=== PATIENT | male | born 1965 | race Caucasian/White ===

== ENCOUNTER → 2016-06-09 | Outpatient (CLI) | payer OTHER | LOC: RAD 19:52 | PROVIDERS: ATTEND Physician Assistant | DX: R05 Cough (principal) | CPT/HCPCS: 71020 ==

== ENCOUNTER 2018-09-26 19:14 | Observation (INO) | payer OTHER ==
[2018-09-26] MEDS ORDERED: ONDANSETRON 4 MG TAB.RAPDIS PO ONE (19:56)
[2018-09-26] MEDS ORDERED: OXYCODONE-ACETAMINOPHEN 5-325 MG TABLET PO ONE (19:56)
--- NOTE | 2018-09-26 19:59 | ER Document Report ---
ED Medical Screen (RME) - General Chief Complaint: Abdominal Pain Stated Complaint: ABDOMINAL PAIN Time Seen by Provider: 09/26/18 19:46 Primary Care Provider: ROSEY KAPOOR PA-C [Primary Care Provider] - Follow up as needed Notes: Patient is a 53-year-old male with a history of of acid reflux, colon cancer and chronic low back pain who presents the emergency department with a chief complaint of right upper quadrant pain. Patient states after eating his lunch which consisted of a ham and cheese sandwich and a peanut butter and jelly sandwich he developed a right upper quadrant constant pressure. Patient states he has no nausea without vomiting. Patient reports 3 episodes of diarrhea. Patient denies urinary symptoms. Patient reports a history of gallstones. Patient reports a history of acid reflux in which he does take omeprazole for and denies any recent belching or uncontrolled acid reflux. TRAVEL OUTSIDE OF THE [place] IN LAST 30 DAYS: No - Related Data Allergies/Adverse Reactions: morphine Allergy (Verified 09/26/18 19:23) tetracycline Adverse Reaction (Verified 09/26/18 19:23) Physical Exam - Vital signs Vitals: Temp Pulse Resp BP Pulse Ox 97.9 F 57 L 18 137/78 H 100 09/26/18 19:19 09/26/18 19:19 09/26/18 19:19 09/26/18 19:19 09/26/18 19:19 - Abdominal Inspection: Obese Distension: No distension Bowel sounds: Normal Tenderness: Tender - ruq tenderness Organomegaly: No organomegaly Course - Re-evaluation Re-evalutation: 09/26/18 19:59 I have greeted and performed a rapid initial assessment of this patient. A comprehensive ED assessment and evaluation of the patient, analysis of test results and completion of the medical decision making process will be conducted by additional ED providers. - Vital Signs Vital signs: Temp Pulse Resp BP Pulse Ox 97.9 F 57 L 18 137/78 H 100 09/26/18 19:19 09/26/18 19:19 09/26/18 19:19 09/26/18 19:19 09/26/18 19:19 Doctor's Discharge - Discharge Referrals: ROSEY KAPOOR PA-C [Primary Care Provider] - Follow up as needed
[2018-09-26 20:33] LABS: ABSOLUTE BASOPHILS # (AUTO) 0.1 10^3/uL (0.0-0.2); ABSOLUTE EOSINOPHILS # (AUTO) 0.8 10^3/uL (0.0-0.6); ABSOLUTE LYMPHOCYTES (AUTO) 4.4 10^3/uL (0.5-4.7); ABSOLUTE MONOCYTES (AUTO) 0.9 10^3/uL (0.1-1.4); ABSOLUTE NEUT (AUTO) 5.2 10^3/uL (1.7-8.2); EOSINOPHILS % (AUTO) 7.3 % (0-6); HEMATOCRIT 42.6 % (37.9-51.0); HEMOGLOBIN 14.4 g/dL (13.5-17.0); LYMPHOCYTES % (AUTO) 38.6 % (13-45); MEAN CORPUSCULAR HEMOGLOBIN 29.9 pg (27.0-33.4); MEAN CORPUSCULAR HGB CONC 33.7 g/dL (32.0-36.0); MEAN CORPUSCULAR VOLUME 89 fl (80-97); MONOCYTES % (AUTO) 7.6 % (3-13); PLATELET COUNT 257 10^3/uL (150-450); RED CELL DISTRIBUTION WIDTH 14.5 % (11.5-14.0); SEGMENTED NEUTROPHILS % (AUTO) 45.5 % (42-78); TOTAL CELLS COUNTED % (AUTO) 100 %; WHITE BLOOD COUNT 11.4 10^3/uL (4.0-10.5)
[2018-09-26 20:34] LABS: APPEARANCE,URINE CLEAR; BILIRUBIN,URINE NEGATIVE (NEGATIVE); COLOR,URINE YELLOW; GLUCOSE, URINE NEGATIVE (NEGATIVE); KETONES,URINE NEGATIVE (NEGATIVE); LEUKOCYTE ESTERASE,URINE NEGATIVE (NEGATIVE); NITRITE,URINE NEGATIVE (NEGATIVE); PROTEIN,URINE NEGATIVE (NEGATIVE); URINE SPECIFIC GRAVITY 1.029
[2018-09-26 20:49] LABS: ALBUMIN 4.5 g/dL (3.5-5.0); ALKALINE PHOSPHATASE 84 U/L (38-126); ANION GAP 9 (5-19); ASPARTATE AMINO TRANSFERASE 24 U/L (17-59); BILIRUBIN,DIRECT 0.3 mg/dL (0.0-0.4); BILIRUBIN,TOTAL 0.5 mg/dL (0.2-1.3); BLOOD UREA NITROGEN 14 mg/dL (7-20); CALCIUM 9.6 mg/dL (8.4-10.2); CARBON DIOXIDE 28 mmol/L (22-30); CHLORIDE 101 mmol/L (98-107); GLUCOSE 100 mg/dL (75-110); POTASSIUM 3.8 mmol/L (3.6-5.0); TOTAL PROTEIN 7.5 g/dL (6.3-8.2)
--- NOTE | 2018-09-26 21:26 | RADIOLOGY REPORT (SQ) ---
US ABDOMEN LIMITED EXAM DATE: 09/26/2018 7:56 PM CDT HISTORY: Right upper quadrant pain. COMPARISON: None. TECHNIQUE: Grayscale and color Doppler imaging of the right upper quadrant was performed. FINDINGS: The liver has normal echotexture without focal lesion identified. The main portal vein has normal hepatopetal flow. Multiple shadowing gallstones are seen. No pericholecystic fluid or gallbladder wall thickening. The common bile duct is normal caliber. The visualized portions of the pancreas are unremarkable. No hydronephrosis or shadowing renal stones are identified. The right kidney is normal in size. The visualized portions of the IVC and aorta are patent. IMPRESSION: Cholelithiasis without evidence of acute cholecystitis.
[2018-09-26] MEDS ORDERED: NORMAL SALINE 1000 ML 1,000 ML IV ONE (21:47)
[2018-09-26] MEDS ORDERED: HYDROMORPHONE HCL INJ/PF 2 MG/ML AMPULE IV ONE (21:47)
--- NOTE | 2018-09-26 22:01 | ER Document Report ---
ED GI/ - General Chief Complaint: Abdominal Pain Stated Complaint: ABDOMINAL PAIN Time Seen by Provider: 09/26/18 19:46 Notes: Patient is a 53-year-old male that comes emergency department for chief complaint of abdominal pain. Symptoms started after lunch shortly after he had eaten a ham and cheese sandwich along with a peanut butter and jelly sandwich. He states he had sharp pain and had nausea but denies vomiting. He has had intermittent pain since that time occasionally very sharp. He has had 3 somewhat loose stools today. He denies fever/chills. He does report a known history of gallstones. He has never had symptoms this bad in the right upper quadrant reportedly. Remaining medical history includes partial bowel resection for colon cancer, previous colostomy bag, appendectomy, GERD, "glucose intolerance" on metformin, hypothyroidism. TRAVEL OUTSIDE OF THE [place] IN LAST 30 DAYS: No - Related Data Allergies/Adverse Reactions: morphine Allergy (Verified 09/26/18 19:23) tetracycline Adverse Reaction (Verified 09/26/18 19:23) Past Medical History - General Information source: Patient - Social History Smoking Status: Never Smoker Frequency of alcohol use: None Drug Abuse: None Lives with: Family Family History: Reviewed & Not Pertinent Patient has suicidal ideation: No Patient has homicidal ideation: No Endocrine Medical History: Comment Only: Hx Diabetes Mellitus Type 2 - Pre- Diabetic Renal/ Medical History: Denies: Hx Peritoneal Dialysis Malignancy Medical History: Reports Hx Colorectal Cancer - Colon cancer status post partial bowel resection and colostomy bag GI Medical History: Reports: Hx Gastroesophageal Reflux Disease Past Surgical History: Reports: Hx Appendectomy, Hx Bowel Surgery, Hx Colostomy - Immunizations Hx Diphtheria, Pertussis, Tetanus Vaccination: Yes Review of Systems - Review of Systems Constitutional: No symptoms reported EENT: No symptoms reported Cardiovascular: No symptoms reported Respiratory: No symptoms reported Gastrointestinal: See HPI Genitourinary: No symptoms reported Male Genitourinary: No symptoms reported Musculoskeletal: No symptoms reported Skin: No symptoms reported Hematologic/Lymphatic: No symptoms reported Neurological/Psychological: No symptoms reported Physical Exam - Vital signs Vitals: Temp Pulse Resp BP Pulse Ox 97.9 F 57 L 18 137/78 H 100 09/26/18 19:19 09/26/18 19:19 09/26/18 19:19 09/26/18 19:19 09/26/18 19:19 - Notes Notes: GENERAL: Alert, interacts well. HEAD: Normocephalic, atraumatic. EYES: Pupils equal, round, and reactive to light. Extraocular movements intact. ENT: Oral mucosa moist, tongue midline. Oropharynx unremarkable. Airway patent. LUNGS: Clear to auscultation bilaterally, no wheezes, rales, or rhonchi. No respiratory distress. HEART: Regular rate and rhythm. No murmur ABDOMEN: Patient is very tender in the right upper quadrant and epigastric areas with a lot of wincing. No rigidity. Remaining abdominal exam is unremarkable. There is a lower abdominal scar in the right lower abdomen, abdomen otherwise unremarkable. GENITOURINARY: Deferred EXTREMITIES: Moves all 4 extremities spontaneously. No edema, normal radial and dorsalis pedis pulses bilaterally. No cyanosis. BACK: no cervical, thoracic, lumbar midline tenderness. No saddle anesthesia, normal distal neurovascular exam. NEUROLOGICAL: Alert and oriented x3. Normal speech. Cranial nerves II through XII grossly intact. PSYCH: Normal affect, normal mood. SKIN: Warm, dry, normal turgor. No rashes or lesions noted. Course - Re-evaluation Re-evalutation: CBC shows mild looks cytosis without concerning shift, no bandemia. Chemistry unremarkable, lipase unremarkable. Urinalysis unremarkable. Ultrasound showing cholelithiasis without cholecystitis. On my initial evaluation patient is complaining of significant amount of pain in the right upper quadrant. He does have pain on palpation of the area. Remaining abdomen is benign. He does not appear toxic. Vital signs unremarkable with no fever. On reevaluation patient states he is still having intermittent sharp pain and he does not feel he can go home, eat anything, or do well at home. States he would like to consider surgery. 09/26/18 23:00 I spoke with general surgeon on-call, Dr. Dumont, patient will be admitted to his service, patient was advised that there is a chance that he has a wait for the surgery but he will be attempted to be added to the list for the operating room. Patient states gratefulness and agreement. - Vital Signs Vital signs: Temp Pulse Resp BP Pulse Ox 97.9 F 57 L 18 137/78 H 100 09/26/18 19:19 09/26/18 19:19 09/26/18 19:19 09/26/18 19:09/26/18 19:19 - Laboratory Result Diagrams: 09/26/18 20:09 09/26/18 20:09 Laboratory results interpreted by me: 09/26/18 09/26/18 20:09 20:09 WBC 11.4 H RDW 14.5 H Eosinophils % 7.3 H Absolute Eosinophils 0.8 H Urine Urobilinogen 2.0 H Discharge - Discharge Clinical Impression: RUQ pain Cholelithiasis Qualifiers: Cholelithiasis location: gallbladder Cholecystitis presence: without cholecyst itis Biliary obstruction: without biliary obstruction Qualified Code(s): K80.20 - Calculus of gallbladder without cholecystitis without obstruction Condition: Stable Disposition: ADMITTED OBSERVATION Admitting Provider: Surgicalist Unit Admitted: Surgical Floor
[2018-09-26] MEDS ORDERED: ONDANSETRON HCL INJ/PF 4 MG/2 ML SDV IV PRN (22:57)
[2018-09-26] MEDS: KETOROLAC TROMETHAMINE INJ/PF 30 MG/1 ML SDV IV PRN (23:41)
[2018-09-27] MEDS ORDERED: PIPERACILLIN/TAZOBACTAM 3.375 GM VIAL IV ONE (00:20)
[2018-09-27] MEDS: PIPERACILLIN SODIUM/TAZOBACTAM 3.375 GM in NORMAL SALINE 100 ML IV SCH ×5 (00:41→21:25)
[2018-09-27] MEDS: NORMAL SALINE 1000 ML 1,000 ML IV PRN ×2 (00:41→18:19)
--- NOTE | 2018-09-27 07:22 | PDOC H&P ---
History of Present Illness Admission Date/PCP: 09/26/18 23:05 AMILCAR VERA Patient complains of: Right upper quadrant pain, unrelenting History of Present Illness: SEAN YOUSIF is a 53 year old male with a history of "gallbladder problems". He has a history of diabetes and hypertension. His previous episodes have been self-limited and mild to moderate. The patient reports that yesterday he ate a ham, cheese, and [place] sandwich. Approximately 30 minutes later he began having sharp, stabbing right upper quadrant pain that would not relent. The patient presented to the emergency department for evaluation. Patient had an ultrasound showing gallstones, without ancillary findings of cholecystitis. The patient received multiple doses of narcotic medication without significant relief. The patient reports nausea, without vomiting. He also reports frequent headaches. Denies chest pain, shortness of breath, dizziness, orthostasis, malaise, fatigu e, blurry vision. Past Medical History Endocrine Medical History: Comment Only: Diabetes Mellitus Type 2 - Pre-Diabetic Malignancy Medical History: Reports: Colorectal Cancer - Colon cancer status post partial bowel resection and colostomy bag GI Medical History: Reports: Gastroesophageal Reflux Disease Psychiatric Medical History: Denies: Depression Past Surgical History Past Surgical History: Reports: Appendectomy, Colostomy Social History Lives with: Family Smoking Status: Never Smoker Frequency of Alcohol Use: None Hx Recreational Drug Use: No Drugs: None Hx Prescription Drug Abuse: No - Advance Directive Resuscitation Status: Full Code Family History Family History: Reviewed & Not Pertinent Parental Family History Reviewed: Yes Children Family History Reviewed: Yes Sibling(s) Family History Reviewed.: Yes Medication/Allergy Allergies/Adverse Reactions: morphine Allergy (Verified 09/26/18 19:23) tetracycline Adverse Reaction (Verified 09/26/18 19:23) Review of Systems Constitutional: ABSENT: anorexia, chills, fatigue Eyes: ABSENT: visual disturbances Ears: ABSENT: hearing changes Nose, Mouth, and Throat: ABSENT: sore throat Cardiovascular: ABSENT: chest pain Respiratory: ABSENT: cough, dyspnea Gastrointestinal: PRESENT: abdominal pain, nausea. ABSENT: hematemesis, hematochezia, melena Genitourinary: ABSENT: dysuria Integumentary: ABSENT: diaphoresis, rash Neurological: ABSENT: confusion, convulsions, dizziness Psychiatric: ABSENT: anxiety, depression Endocrine: ABSENT: cold intolerance, heat intolerance Hematologic/Lymphatic: ABSENT: easy bleeding, easy bruising Physical Exam Vital Signs: Temp Pulse Resp BP Pulse Ox 97.4 F 46 L 16 108/63 97 09/27/18 04:39 09/27/18 04:39 09/27/18 04:39 09/27/18 04:39 09/27/18 04:39 Intake & Output 09/26/18 09/27/18 09/28/18 06:59 06:59 06:59 Intake Total 1100 Balance 1100 Weight 107.2 kg General appearance: PRESENT: no acute distress, cooperative Head exam: PRESENT: atraumatic, normocephalic Eye exam: PRESENT: EOMI, PERRLA. ABSENT: scleral icterus Mouth exam: PRESENT: moist, neck supple Neck exam: ABSENT: meningismus, tenderness, thyromegaly, tracheal deviation Respiratory exam: PRESENT: chest wall tenderness, unlabored. ABSENT: clear to auscultation karen, wheezes Cardiovascular exam: PRESENT: RRR Pulses: PRESENT: normal radial pulses - Patient be discharged home GI/Abdominal exam: PRESENT: guarding - Right upper quadrant, Nguyen's sign, soft, tenderness - Right upper quadrant. ABSENT: distended Rectal exam: PRESENT: deferred Extremities exam: ABSENT: clubbing Musculoskeletal exam: ABSENT: deformity Neurological exam: PRESENT: alert, awake, oriented to person, oriented to place, oriented to time, oriented to situation, CN II-XII grossly intact Psychiatric exam: ABSENT: agitated, anxious, depressed Focused psych exam: ABSENT: delusional Skin exam: ABSENT: cyanosis, erythema, jaundice Results Laboratory Results: 09/26/18 20:09 09/26/18 20:09 09/26/18 09/26/18 09/26/18 20:09 20:09 20:09 WBC 11.4 H RBC 4.80 Hgb 14.4 Hct 42.6 MCV 89 MCH 29.9 MCHC 33.7 RDW 14.5 H Plt Count 257 Seg Neutrophils % 45.5 Lymphocytes % 38.6 Monocytes % 7.6 Eosinophils % 7.3 H Basophils % 1.0 Absolute Neutrophils 5.2 Absolute Lymphocytes 4.4 Absolute Monocytes 0.9 Absolute Eosinophils 0.8 H Absolute Basophils 0.1 Sodium 137.8 Potassium 3.8 Chloride 101 Carbon Dioxide 28 Anion Gap 9 BUN 14 Creatinine 0.90 Est GFR ( Amer) > 60 Est GFR (Non-Af Amer) > 60 Glucose 100 Calcium 9.6 Total Bilirubin 0.5 AST 24 Alkaline Phosphatase 84 Total Protein 7.5 Albumin 4.5 Lipase 72.5 Urine Color YELLOW Urine Appearance CLEAR Urine pH 6.0 Ur Specific [place] 1.029 Urine Protein NEGATIVE Urine Glucose (UA) NEGATIVE Urine Ketones NEGATIVE Urine Blood NEGATIVE Urine Nitrite NEGATIVE Ur Leukocyte Esterase NEGATIVE Urine WBC (Auto) 0 Urine RBC (Auto) 1 Impressions: Abdomen Ultrasound 09/26/18 19:56 IMPRESSION: Cholelithiasis without evidence of acute cholecystitis. Assessment & Plan - Diagnosis (1) Cholecystitis Is this a current diagnosis for this admission?: Yes - Plan Summary Plan Summary: This is a 53-year-old male with unrelenting right upper quadrant pain, nausea, and gallstones. The patient has an ultrasound showing gallstones, without gallbladder wall thickening. Despite gallbladder wall thickening, I believe the patient is experiencing early acute cholecystitis. I will admit the patient to the hospital, start intravenous antibiotics, and plan for laparoscopic c holecystectomy today. Risks/benefits discussed, informed consent obtained, and all questions answered.
[2018-09-27] MEDS: KETOROLAC TROMETHAMINE INJ/PF 30 MG/1 ML SDV IV PRN ×2 (07:51→18:17)
--- NOTE | 2018-09-27 11:12 | PDOC PROGRESS REPORT ---
Subjective Progress Note for:: 09/27/18 Subjective:: minimal RUQ abdominal pain Reason For Visit: CHOLECYSTITIS Physical Exam Vital Signs: Temp Pulse Resp BP Pulse Ox 97.4 F 46 L 16 108/63 97 09/27/18 04:39 09/27/18 04:39 09/27/18 04:39 09/27/18 04:39 09/27/18 04:39 Intake & Output 09/26/18 09/27/18 09/28/18 06:59 06:59 06:59 Intake Total 1100 Balance 1100 Weight 107.2 kg General appearance: PRESENT: no acute distress Neck exam: PRESENT: full ROM Respiratory exam: PRESENT: clear to auscultation karen Cardiovascular exam: PRESENT: RRR GI/Abdominal exam: PRESENT: Nguyen's sign - minimal, soft Results Laboratory Results: 09/26/18 20:09 09/26/18 20:09 09/26/18 09/26/18 09/26/18 20:09 20:09 20:09 WBC 11.4 H RBC 4.80 Hgb 14.4 Hct 42.6 MCV 89 MCH 29.9 MCHC 33.7 RDW 14.5 H Plt Count 257 Seg Neutrophils % 45.5 Lymphocytes % 38.6 Monocytes % 7.6 Eosinophils % 7.3 H Basophils % 1.0 Absolute Neutrophils 5.2 Absolute Lymphocytes 4.4 Absolute Monocytes 0.9 Absolute Eosinophils 0.8 H Absolute Basophils 0.1 Sodium 137.8 Potassium 3.8 Chloride 101 Carbon Dioxide 28 Anion Gap 9 BUN 14 Creatinine 0.90 Est GFR ( Amer) > 60 Est GFR (Non-Af Amer) > 60 Glucose 100 Calcium 9.6 Total Bilirubin 0.5 AST 24 Alkaline Phosphatase 84 Total Protein 7.5 Albumin 4.5 Lipase 72.5 Urine Color YELLOW Urine Appearance CLEAR Urine pH 6.0 Ur Specific [place] 1.029 Urine Protein NEGATIVE Urine Glucose (UA) NEGATIVE Urine Ketones NEGATIVE Urine Blood NEGATIVE Urine Nitrite NEGATIVE Ur Leukocyte Esterase NEGATIVE Urine WBC (Auto) 0 Urine RBC (Auto) 1 Impressions: Abdomen Ultrasound 09/26/18 19:56 IMPRESSION: Cholelithiasis without evidence of acute cholecystitis. Assessment & Plan - Diagnosis (1) Cholelithiasis Qualifiers: Cholelithiasis location: gallbladder Cholecystitis presence: without cholecystitis Biliary obstruction: without biliary obstruction Qualified Code(s): K80.20 - Calculus of gallbladder without cholecystitis without obstruction Is this a current diagnosis for this admission?: Yes (2) RUQ pain Is this a current diagnosis for this admission?: Yes - Plan Summary Plan Summary: A/ Symptomatic cholelithiasis Normal liver enzymes mild RUQ abdominal pain US gallbladder significant for cholelithiasis w/o cholecystitis Patient denies any previous episode of cardiac event, [place], angina, arrhythmia, stroke. EKG interpreted by Dr. Rudd (Cardiology) and found to be normal w/o abnormalities and the patient has been cleared by for Surgery P Laparoscopic cholecystectomy, possible open, possible cholangiogram. Procedure, risks, benefits, complications including bleeding from the liver and / or injury to the common bile ducts which might require transfer to a tertiary center for open repair have been discussed with the patient, his questions were answered, and he decides to proceed.
--- NOTE | 2018-09-27 11:30 | Progress Note ---
Provider Note Provider Note: CARDIOLOGY preliminary consultation note: Formal consultation to follow. Patient seen at 10:30 AM on 09/27/2018. REASON FOR CONSULTATION: Cardiac risk assessment for gallbladder surgery sought, due to the computer reading of probable old inferior AR on the EKG. The patient interviewed and examined. The patient has no history of coronary artery disease, no history of AR or anginal symptoms. He has no history of cardiac dysrhythmias or congestive heart failure. He states that recently he has been having some headaches and he was told to check his blood pressure. He is not hypertensive as yet. He has a history of diabetes mellitus type 2 and also history of hypothyroidism on Synthroid. In view of the patient's bradycardia, albeit asymptomatic would recommend checking thyroid function test to be sure that the patient is euthyroid. I have reviewed the patient's EKG. It sinus bradycardia within normal limits. No evidence of acute ischemia or AR or evidence of old AR. IMPRESSION: Patient would be at low/average cardiac risk for this procedure of gallbladder surgery. Formal consultation to follow.
[2018-09-27 12:23] LABS: FREE T4 (FREE THYROXINE) 1.13 ng/dL (0.78-2.19)
[2018-09-27 12:24] LABS: FREE T3 3.58 pg/mL (2.77-5.27)
[2018-09-27] MEDS ORDERED: PROMETHAZINE HCL INJ 25 MG/1 ML VIAL IV PRN ×2 (12:32)
[2018-09-27] MEDS ORDERED: FENTANYL CITRATE INJ/PF 100 MCG/2 ML AMPUL IV PRN ×3 (12:32)
[2018-09-27] MEDS ORDERED: MEPERIDINE HCL/PF INJ 25 MG/1 ML DISP.SYRIN IV PRN (12:32)
[2018-09-27] MEDS ORDERED: DIPHENHYDRAMINE HCL 50 MG/ML VIAL IV PRN (12:32)
[2018-09-27 12:37] LABS: THYROID STIMULATING HORMONE 3.39 uIU/mL (0.47-4.68)
[2018-09-27] MEDS ORDERED: FENTANYL CITRATE INJ/PF 250 MCG/5 ML AMPULE ONE (13:25)
[2018-09-27] MEDS ORDERED: MIDAZOLAM 2 MG/2 ML INJ ONE (13:25)
[2018-09-27] MEDS ORDERED: PROPOFOL INJ 200 MG/20 ML VIAL IV ONE (13:25)
[2018-09-27] MEDS ORDERED: DEXAMETHASONE SOD PHOSPHATE INJ 4 MG/1 ML VIAL ONE ×2 (13:30→14:45)
[2018-09-27] MEDS ORDERED: BUPIVACAINE HCL 0.25% /EPINEPHRINE INJ/PF 30 ML SDV ONE (13:32)
[2018-09-27] MEDS ORDERED: BUPIVACAINE HCL 0.5%-EPI 1:200000 INJ/PF 30 ML VIAL ONE (13:33)
[2018-09-27] MEDS ORDERED: ROCURONIUM BROMIDE INJ 50 MG/5 ML VIAL IV ONE (14:45)
[2018-09-27] MEDS ORDERED: LIDOCAINE 2% INJ-PF (20 MG/ML) 2 ML AMPUL ONE (14:45)
[2018-09-27] MEDS ORDERED: NEOSTIGMINE METHYLSULFATE 10 MG/10 ML VIAL ONE (14:45)
[2018-09-27] MEDS ORDERED: GLYCOPYRROLATE 1 MG/5 ML VIAL ONE (14:45)
[2018-09-27] MEDS ORDERED: ONDANSETRON HCL INJ/PF 4 MG/2 ML SDV ONE (14:45)
[2018-09-27] MEDS ORDERED: SUGAMMADEX SODIUM 200 MG/2 ML SDV IV ONE (15:28)
--- NOTE | 2018-09-27 15:30 | Operative Report ---
Nonrecallable Operative Report DATE OF SURGERY: 09/27/18 PREOPERATIVE DIAGNOSIS: symptomatic cholelithiasis POSTOPERATIVE DIAGNOSIS: same OPERATION: laparosocpic cholecystectomy SURGEON: CARROLL LEAL ANESTHESIA: Local - 10 mL TISSUE REMOVED OR ALTERED: gallblader COMPLICATIONS: none INTRAOPERATIVE FINDINGS: as above, normal gallblader w/ stone
[2018-09-27] MEDS ORDERED: ONDANSETRON HCL INJ/PF 4 MG/2 ML SDV IV PRN (15:32)
[2018-09-27] MEDS ORDERED: MORPHINE SULFATE 10 MG/ML INJ IV PRN (15:32)
--- NOTE | 2018-09-27 17:10 | OPERATIVE REPORT E ---
Operative Report NAME: SEAN YOUSIF : 1965 AGE: 53Y DATE OF SURGERY: 09/27/2018 ROOM: 331 PREOPERATIVE DIAGNOSIS: Symptomatic cholelithiasis. POSTOPERATIVE DIAGNOSIS: Symptomatic cholelithiasis. OPERATION: Laparoscopic cholecystectomy. SURGEON: CARROLL LEAL M.D. SPINDLE REPAIRER: None. ANESTHESIA: General plus 10 mL of 1% lidocaine with epinephrine. ESTIMATED BLOOD LOSS: Less than 5 mL. COMPLICATIONS: None. FLUIDS: 1400 mL. DRAINS: None. URINE OUTPUT: Not monitored. INDICATION AND FINDINGS: This is a 53-year-old male who presented to the emergency room complaining of right upper quadrant pain and nausea, found to have cholelithiasis without evidence of cholecystitis. Blood work was within normal limits. The patient was then scheduled to undergo laparoscopic cholecystectomy, possible open, possible cholangiogram. The procedure, risks, benefits, and complications were explained to the patient. He understands all the above and desires to proceed. DESCRIPTION OF PROCEDURE: The procedure was done in the operating room. The patient was placed in a supine position. Anesthesia was induced by endotracheal intubation. The abdomen was prepped and draped in the usual sterile fashion. An incision was made in the left upper quadrant and a 5 mm port with Optiview adapter was entered through the skin into the peritoneal cavity. CO2 pneumoperitoneum was established. Numerous adhesions were noted at the level of the umbilicus due to the previous surgery. At this time two 5 mm ports were inserted in the right upper quadrant under direct visualization. We performed a skin incision with a #15 blade. A 5 mm port was then inserted just above and to the right of the umbilicus under direct visualization, and a 12 mm port was inserted through the epigastrium skin incision. The patient was placed in a reversed Trendelenburg position with the right side elevated. The gallbladder was grasped at the level of the fundus, elevated, and retroflexed. The neck of the gallbladder was grasped and pulled anteriorly towards the patient's right to expose the angle of [place]. Dissection with hook cautery was started at the level of the cystic duct and continued superiorly to the right and left with exposure of the critical view of safety. Dissection was then continued more distally. The cystic duct was identified and gently dissected with a hook cautery and with the peanut dissector. When a space was developed posteriorly to the cystic duct, the cystic duct dissection was continued bluntly with hook cautery. This was then doubly clipped proximally and distally with the laparoscopic tip performance improvement analyst and was divided with scissors. The gallbladder was dissected from the liver bed using hook cautery at higher settings. The gallbladder was then extracted from the peritoneal cavity with an Endobag. The CO2 pneumoperitoneum was then re-established. The gallbladder bed was inspected and no active bleeding was noted. The area was irrigated with normal saline which was fully aspirated and was clear. Under direct visualization using a fascial closure device, the fascial defect/epigastric defect was closed with 0-Vicryl suture in a [id number] fashion, and this suture was left untied. At this point all instruments were removed. The CO2 pneumoperitoneum was released, and the ports were removed as well. The fascial defect at the epigastrium was closed with previously placed 0-Vicryl [id number] suture. The skin incisions were closed with 4-0 PDS running subcuticular suture with bandage and Steri-Strips. The patient tolerated the procedure well and was extubated and transferred to the recovery room in satisfactory condition. DICTATING PHYSICIAN: CARROLL LEAL M.D. [id number] PHY#: [id number] ID: [id number] JOB#: [id number] ACCT: [id number] cc:CARROLL LEAL M.D. >
--- NOTE | 2018-09-27 17:38 | EKG REPORT ---
SEVERITY:- NORMAL ECG - SINUS BRADYCARDIA : Confirmed by: Linnette Thomas MD 27-Sep-2018 17:36:53
[2018-09-27] MEDS: HYDROMORPHONE HCL INJ/PF 2 MG/ML AMPULE IV PRN ×2 (19:33→23:28)
--- NOTE | 2018-09-27 21:06 | PDOC CONSULTATION ---
Consultation-Blank Consultation: CARDIOLOGY CONSULTATION by Dr. Linnette Thomas on 09/27/2018. Patient seen at 9 AM on 09/27/2018. REASON FOR CONSULTATION: Presumed abnormal EKG. Cardiac risk assessment for cholecystectomy. CONSULT REQUESTING PHYSICIAN: Dr. Simon, surgicalist. HISTORY OF PRESENT ILLNESS: Patient is a 53-year-old male with known history of diabetes mellitus type 2, who was admitted with symptomatic cholelithiasis and is for surgical treatment of the same. The patient's EKG was read by the computer as abnormal seeing possible "posterior infarct". On review of the EKG the EKG shows sinus bradycardia within normal limits. The patient has no prior history of LA or anginal symptoms or coronary artery disease. He states recently he has been having headaches and he has been checked for hypertension, although his blood pressure has remained normal. He has a no history of cardiac arrhythmia or congestive heart failure. There is no specific dizziness or syncope or near syncope or TIA CVA symptoms. Past Medical History Endocrine Medical History: Comment Only: Diabetes Mellitus Type 2, he also has hypothyroidism on replacement. Malignancy Medical History: Reports: Colorectal Cancer - Colon cancer status post partial bowel resection and colostomy bag GI Medical History: Reports: Gastroesophageal Reflux Disease Psychiatric Medical History: Denies: Depression. Denies anxiety. CARDIAC: No history of coronary artery disease LA or anginal symptoms. No history of heart failure. No history of palpitations or cardiac arrhythmia. No syncope. RENAL: No history of chronic kidney disease. No symptoms of enlarged prostate. PULMONARY: No history of asthma or COPD. No history of sleep apnea. No history of pulmonary embolism. Surgical History Past Surgical History: Reports: Appendectomy, Colostomy Social History Lives with: Family Smoking Status: Never Smoker Frequency of Alcohol Use: None Hx Recreational Drug Use: No Drugs: None Hx Prescription Drug Abuse: No - Advance Directive Resuscitation Status: Full Code. His is a surrogate healthcare decision maker. Family History Family History: Reviewed & Not Pertinent Parental Family History Reviewed: Yes Children Family History Reviewed: Yes Sibling(s) Family History Reviewed.: Yes Medication/Allergy Allergies/Adverse Reactions: morphine, and tetracycline. Review of Systems Constitutional: ABSENT: anorexia, chills, fatigue Eyes: ABSENT: visual disturbances Ears: ABSENT: hearing changes Nose, Mouth, and Throat: ABSENT: sore throat Cardiovascular: ABSENT: chest pain Respiratory: ABSENT: cough, dyspnea Gastrointestinal: PRESENT: abdominal pain, nausea. ABSENT: hematemesis, hematochezia, melena Genitourinary: ABSENT: dysuria Integumentary: ABSENT: diaphoresis, rash Neurological: ABSENT: confusion, convulsions, dizziness Psychiatric: ABSENT: anxiety, depression Endocrine: ABSENT: cold intolerance, heat intolerance Hematologic/Lymphatic: ABSENT: easy bleeding, easy bruising PHYSICAL EXAMINATION: The patient is mildly obese. He is well-groomed. His pain is well controlled and does not appear to be in any acute distress. Selected Entries 09/27/18 08:04 Temperature 97.9 F Temperature Oral Source Pulse Rate 51 L Respiratory 18 Rate Blood Pressure 95/67 L Blood Pressure 76 Mean BP Location Right Arm BP Position Supine O2 Sat by Pulse 100 Oximetry Oxygen Delivery Room Air Method HEAD: Is atraumatic normocephalic. EYES: Pupils equal round regular reactive to light and accommodation. Extraocular movements are normal. There is no conjunctival pallor. There is no scleral icterus. ENT is negative. NECK: Is supple. There is no JVD. Carotids are equal there is no bruit. There is no lymphadenopathy. There is no goiter. There is no accessory muscles of respiration use. Trachea central. LUNGS: Clear to auscultation percussion without any rhonchi rales or wheezing. HEART: S1-S2 is heard. There is no S3 gallop. There is no S4 gallop. There is systolic murmur left sternal border and the apex there is no rub. ABDOMEN: Soft. There is no hepatosplenomegaly. There is mild discomfort on palpation of the right upper quadrant. Bowel sounds well heard. EXTREMITIES: Femorals well felt. There is no femoral bruits. Leg pulses are well felt. There is no pedal edema. There is no DVT or cellulitis. There is no cyanosis or clubbing there is no calf tenderness. FENCE REPAIRMAN: The patient is conscious awake alert oriented x3 with no focal deficits. PSYCHIATRIC: The patient judgment insight are intact her affect is normal. EKG: Sinus bradycardia. EKG is within normal limits. There is no evidence of ischemia or LA. Current Medications Enoxaparin Sodium (Lovenox Inj 40 Mg/0.4 Ml Disp.Syrin) 40 mg SUBCUT DAILY MIKEY Stop: 10/28/18 09:59 Famotidine (Pepcid Inj/Pf 20 Mg/2 Ml Sdv) 20 mg IV Q12 [facility] Stop: 10/27/18 21:59 Hydromorphone HCl (Dilaudid Inj/Pf 2 Mg/Ml Ampule) 0.25 mg IV Q2HP PRN PRN Reason: FOR PAIN Stop: 10/04/18 18:47 Last Admin: 09/27/18 19:33 Dose: 0.25 mg Documented by: Sodium Chloride (Nacl 0.9% 1000 Ml Iv Soln) 1,000 mls @ 125 mls/hr IV CONTINUOUS PRN PRN Reason: THIS MED IS NOT "PRN" Stop: 10/26/18 22:56 Last Admin: 09/27/18 18:19 Dose: 125 mls/hr Documented by: Piperacillin Sod/Tazobactam (Sod 3.375 gm/ Sodium Chloride) 100 mls @ 200 mls/hr IV Q6A MIKEY Stop: 10/04/18 08:59 Last Admin: 09/27/18 16:41 Dose: Not Given Documented by: Ketorolac Tromethamine (Toradol Inj/Pf 30 Mg/1 Ml Sdv) 30 mg IV Q8HP PRN PRN Reason: FOR PAIN Stop: 10/01/18 22:59 Last Admin: 09/27/18 18:17 Dose: 30 mg Documented by: Ondansetron HCl (Zofran Inj/Pf 4 Mg/2 Ml Sdv) 4 mg IV Q4HP PRN PRN Reason: FOR NAUSEA/VOMITING Stop: 10/26/18 22:56 Last Admin: 09/26/18 23:41 Dose: 4 mg Documented by: Ondansetron HCl (Zofran Inj/Pf 4 Mg/2 Ml Sdv) 4 mg IV Q6HP PRN PRN Reason: FOR NAUSEA/VOMITING Stop: 10/27/18 15:31 Discontinued Medications Bupivacaine HCl/Epinephrine Bitart (Sensorcaine 0.25%/Epi Mpf 30 Ml Sdv) Confirm Administered Dose 30 ml .ROUTE .STK-MED ONE Stop: 09/27/18 13:33 Bupivacaine HCl/Epinephrine Bitart (Sensorcaine 0.5%-Epi 1:[id number] Mpf 30 Ml Vial) Confirm Administered Dose 30 ml .ROUTE .STK-MED ONE Stop: 09/27/18 13:34 Last Admin: 09/27/18 14:28 Dose: 26 ml Documented by: Dexamethasone Sodium Phosphate (Decadron Inj 4 Mg/Ml Vial) Confirm Administered Dose 4 mg .ROUTE .STK-MED ONE Stop: 09/27/18 13:31 Diphenhydramine HCl (Benadryl Inj 50 Mg/1 Ml Vial) 12.5 mg IV .WHILE IN PACU PRN PRN Reason: ITCHING Stop: 09/27/18 15:32 Fentanyl Citrate (Sublimaze Inj/Pf 100 Mcg/2 Ml Ampule) 25 mcg IV .WHILE IN PACU PRN PRN Reason: PAIN SCALE 2-3 Stop: 09/27/18 15:32 Fentanyl Citrate (Sublimaze Inj/Pf 100 Mcg/2 Ml Ampule) 12.5 mcg IV .WHILE IN PACU PRN PRN Reason: PAIN SCALE OF 1 Stop: 09/27/18 15:32 Fentanyl Citrate (Sublimaze Inj/Pf 100 Mcg/2 Ml Ampule) 50 mcg IV .WHILE IN PACU PRN PRN Reason: PAIN SCALE 4-5 Stop: 09/27/18 15:32 Fentanyl Citrate (Sublimaze Inj/Pf 250 Mcg/5 Ml Ampule) Confirm Administered D ose 250 mcg .ROUTE .STK-MED ONE Stop: 09/27/18 13:26 Hydromorphone HCl (Dilaudid Inj/Pf 2 Mg/Ml Ampule) 0.5 mg IV NOW ONE Stop: 09/26/18 21:48 Last Admin: 09/26/18 22:10 Dose: 0.5 mg Documented by: Sodium Chloride (Nacl 0.9% 1000 Ml Iv Soln) 1,000 mls @ 0 mls/hr IV BOLUS ONE Stop: 09/26/18 21:48 Last Infusion: 09/26/18 23:09 Dose: Infused Documented by: Piperacillin Sod/Tazobactam (Sod 3.375 gm/ Sodium Chloride) 100 mls @ 200 mls/hr IV Q6 MIKEY Stop: 10/04/18 00:00 Last Admin: 09/27/18 06:21 Dose: Not Given Documented by: Meperidine HCl (Demerol Inj 25 Mg/1 Ml Syringe) 12.5 mg IV .WHILE IN PACU PRN PRN Reason: Shivering Stop: 09/27/18 15:32 Midazolam HCl (Versed 2 Mg/2 Ml Inj) Confirm Administered Dose 2 mg .ROUTE .STK- MED ONE Stop: 09/27/18 13:26 Morphine Sulfate (Morphine 10 Mg/Ml Inj) 2 mg IV Q2HP PRN PRN Reason: FOR PAIN Stop: 10/04/18 15:31 Ondansetron HCl (Zofran Odt 4 Mg Tablet) 8 mg PO NOW ONE Stop: 09/26/18 19:57 Last Admin: 09/26/18 20:14 Dose: 8 mg Documented by: Oxycodone/Acetaminophen (Percocet 5-325 Mg Tablet) 2 tab PO NOW ONE Stop: 09/26/18 19:57 Last Admin: 09/26/18 20:15 Dose: 2 tab Documented by: Piperacillin Sod/Tazobactam Sod (Zosyn Inj 3.375 Gm Vial) Confirm Administered Dose 3.375 gm IV .STK-MED ONE Stop: 09/27/18 00:21 Last Admin: 09/27/18 00:27 Dose: Not Given Documented by: Promethazine HCl (Phenergan Inj 25 Mg/1 Ml Vial) 12.5 mg IV .WHILE IN PACU PRN PRN Reason: NAUSEA AND VOMITING Stop: 09/27/18 15:32 Promethazine HCl (Phenergan Inj 25 Mg/1 Ml Vial) 25 mg IV .WHILE IN PACU PRN PRN Reason: NAUSEA AND VOMITING Stop: 09/27/18 15:32 Propofol (Diprivan Inj 200 Mg/20 Ml Vial) Confirm Administered Dose 200 mg IV .STK-MED ONE Stop: 09/27/18 13:26 Sugammadex Sodium (Bridion 200 Mg/2 Ml Sdv) Confirm Administered Dose 200 mg IV .STK-MED ONE Stop: 09/27/18 15:29 Labs- All tests 24 hr 09/26/18 09/27/18 20:09 12:26 POC Glucose 85 TSH 3.39 Free T4 1.13 Free T3 pg/mL 3.58 Labs- Entire Visit 09/26/18 09/26/18 09/26/18 20:09 20:09 20:09 WBC 11.4 H RBC 4.80 Hgb 14.4 Hct 42.6 MCV 89 MCH 29.9 MCHC 33.7 RDW 14.5 H Plt Count 257 Seg Neutrophils % 45.5 Lymphocytes % 38.6 Monocytes % 7.6 Eosinophils % 7.3 H Basophils % 1.0 Absolute Neutrophils 5.2 Absolute Lymphocytes 4.4 Absolute Monocytes 0.9 Absolute Eosinophils 0.8 H Absolute Basophils 0.1 Sodium 137.8 Potassium 3.8 Chloride 101 Carbon Dioxide 28 Anion Gap 9 BUN 14 Creatinine 0.90 Est GFR ( Amer) > 60 Est GFR (Non-Af Amer) > 60 Glucose 100 POC Glucose Calcium 9.6 Total Bilirubin 0.5 Direct Bilirubin 0.3 Neonat Total Bilirubin Not Reportable Neonat Direct Bilirubin Not Reportable Neonat Indirect Bili Not Reportable AST 24 ALT 18 Alkaline Phosphatase 84 Total Protein 7.5 Albumin 4.5 Lipase 72.5 TSH Free T4 Free T3 pg/mL Urine Color YELLOW Urine Appearance CLEAR Urine pH 6.0 Ur Specific [place] 1.029 Urine Protein NEGATIVE Urine Glucose (UA) NEGATIVE Urine Ketones NEGATIVE Urine Blood NEGATIVE Urine Nitrite NEGATIVE Urine Bilirubin NEGATIVE Urine Urobilinogen 2.0 H Ur Leukocyte Esterase NEGATIVE Urine WBC (Auto) 0 Urine RBC (Auto) 1 Urine Mucus (Auto) OCC Urine Ascorbic Acid NEGATIVE 09/26/18 09/27/18 20:09 12:26 WBC RBC Hgb Hct MCV MCH MCHC RDW Plt Count Seg Neutrophils % Lymphocytes % Monocytes % Eosinophils % Basophils % Absolute Neutrophils Absolute Lymphocytes Absolute Monocytes Absolute Eosinophils Absolute Basophils Sodium Potassium Chloride Carbon Dioxide Anion Gap BUN Creatinine Est GFR ( Amer) Est GFR (Non-Af Amer) Glucose POC Glucose 85 Calcium Total Bilirubin Direct Bilirubin Neonat Total Bilirubin Neonat Direct Bilirubin Neonat Indirect Bili AST ALT Alkaline Phosphatase Total Protein Albumin Lipase TSH 3.39 Free T4 1.13 Free T3 pg/mL 3.58 Urine Color Urine Appearance Urine pH Ur Specific [place] Urine Protein Urine Glucose (UA) Urine Ketones Urine Blood Urine Nitrite Urine Bilirubin Urine Urobilinogen Ur Leukocyte Esterase Urine WBC (Auto) Urine RBC (Auto) Urine Mucus (Auto) Urine Ascorbic Acid Abdomen Ultrasound 09/26/18 19:56 IMPRESSION: Cholelithiasis without evidence of acute cholecystitis. IMPRESSION/RECOMMENDATION: 1. Symptomatic acute cholelithiasis: Patient for surgical treatment of the same. 2. Clinically no evidence of coronary artery disease, and EKG is within normal limits. In view of the sinus bradycardia would recommend getting thyroid function test to be sure that the patient is not hypothyroid. Thyroid function tests have been ordered. 3. Diabetes mellitus type 2 [id number]: Continue current treatment. 4. Hypothyroidism: As mentioned earlier would recommend checking the patient's thyroid function to assess the patient's thyroid status. 5. Preoperative cardiac risk assessment for gallbladder surgery. Medications reviewed. Medications and management plan discussed with the surgical list and the anesthesiologist. The patient will be a low/acceptable cardiac risk for this gallbladder surgical procedure. This is already been expressed in my brief note earlier on. The patient does have CAD risk factors namely age and diabetes mellitus and? Lipid status. I have given the option of the patient to follow-up with me if he so desires. Will sign off. Note that the patient was seen briefly postoperatively. His general condition and cardiac status of very stable. And there is no cardiac problems at present. Hence will sign off.
[2018-09-27] MEDS: FAMOTIDINE INJ/PF 20 MG/2 ML SDV IV SCH (21:25)
[2018-09-28] MEDS: HYDROMORPHONE HCL INJ/PF 2 MG/ML AMPULE IV PRN ×2 (03:06→08:31)
[2018-09-28] MEDS: PIPERACILLIN SODIUM/TAZOBACTAM 3.375 GM in NORMAL SALINE 100 ML IV SCH ×4 (03:06→20:31)
[2018-09-28 04:22] LABS: APPEARANCE,URINE CLEAR; BILIRUBIN,URINE NEGATIVE (NEGATIVE); COLOR,URINE YELLOW; GLUCOSE, URINE NEGATIVE (NEGATIVE); KETONES,URINE NEGATIVE (NEGATIVE); LEUKOCYTE ESTERASE,URINE NEGATIVE (NEGATIVE); NITRITE,URINE NEGATIVE (NEGATIVE); PROTEIN,URINE NEGATIVE (NEGATIVE); URINE SPECIFIC GRAVITY 1.017; UROBILINOGEN,URINE NEGATIVE mg/dL (<2.0)
[2018-09-28] MEDS: NORMAL SALINE 1000 ML 1,000 ML IV PRN (06:15)
[2018-09-28 06:59] LABS: ABSOLUTE BASOPHILS # (AUTO) 0.1 10^3/uL (0.0-0.2); ABSOLUTE LYMPHOCYTES (AUTO) 1.8 10^3/uL (0.5-4.7); ABSOLUTE MONOCYTES (AUTO) 0.6 10^3/uL (0.1-1.4); ABSOLUTE NEUT (AUTO) 12.5 10^3/uL (1.7-8.2); BASOPHILS % (AUTO) 0.6 % (0-2); HEMATOCRIT 37.3 % (37.9-51.0); HEMOGLOBIN 12.4 g/dL (13.5-17.0); LYMPHOCYTES % (AUTO) 11.8 % (13-45); MEAN CORPUSCULAR HEMOGLOBIN 29.5 pg (27.0-33.4); MEAN CORPUSCULAR HGB CONC 33.4 g/dL (32.0-36.0); MEAN CORPUSCULAR VOLUME 88 fl (80-97); MONOCYTES % (AUTO) 4.1 % (3-13); PLATELET COUNT 203 10^3/uL (150-450); RED BLOOD COUNT 4.22 10^6/uL (4.35-5.55); RED CELL DISTRIBUTION WIDTH 14.3 % (11.5-14.0); SEGMENTED NEUTROPHILS % (AUTO) 83.5 % (42-78); TOTAL CELLS COUNTED % (AUTO) 100 %
[2018-09-28 07:22] LABS: ALBUMIN 3.4 g/dL (3.5-5.0); ALKALINE PHOSPHATASE 43 U/L (38-126); ANION GAP 8 (5-19); ASPARTATE AMINO TRANSFERASE 46 U/L (17-59); BILIRUBIN,DIRECT 0.2 mg/dL (0.0-0.4); BILIRUBIN,TOTAL 0.3 mg/dL (0.2-1.3); BLOOD UREA NITROGEN 12 mg/dL (7-20); CALCIUM 8.3 mg/dL (8.4-10.2); CARBON DIOXIDE 22 mmol/L (22-30); CHLORIDE 106 mmol/L (98-107); GLUCOSE 130 mg/dL (75-110); POTASSIUM 4.4 mmol/L (3.6-5.0); TOTAL PROTEIN 5.9 g/dL (6.3-8.2)
[2018-09-28] MEDS: FAMOTIDINE INJ/PF 20 MG/2 ML SDV IV SCH (09:58)
[2018-09-28] MEDS: ENOXAPARIN SODIUM INJ 40 MG/0.4 ML DISP.SYRIN SUBCUT SCH (09:58)
[2018-09-28] MEDS: KETOROLAC TROMETHAMINE INJ/PF 30 MG/1 ML SDV IV PRN (10:02)
--- NOTE | 2018-09-28 11:12 | PDOC PROGRESS REPORT ---
Subjective Progress Note for:: 09/28/18 Subjective:: comfortable, tolerating PO well; reports constipation Reason For Visit: CHOLECYSTITIS Physical Exam Vital Signs: Temp Pulse Resp BP Pulse Ox 98.0 F 55 L 18 104/56 L 95 09/28/18 08:09 09/28/18 08:09 09/28/18 08:09 09/28/18 08:09 09/28/18 08:09 Intake & Output 09/27/18 09/28/18 09/29/18 06:59 06:59 06:59 Intake Total 1100 4550 100 Output Total 1555 Balance 1100 2995 100 Weight 107.2 kg 106.4 kg General appearance: PRESENT: no acute distress Respiratory exam: PRESENT: clear to auscultation karen Cardiovascular exam: PRESENT: RRR GI/Abdominal exam: PRESENT: hypoactive bowel sounds, soft, other - all wounds are C/D/I Results Laboratory Results: 09/28/18 06:27 09/28/18 06:27 09/26/18 09/28/18 09/28/18 20:09 03:48 06:27 WBC 15.0 H RBC 4.22 L Hgb 12.4 L Hct 37.3 L MCV 88 MCH 29.5 MCHC 33.4 RDW 14.3 H Plt Count 203 Seg Neutrophils % 83.5 H Sodium Potassium Chloride Carbon Dioxide Anion Gap BUN Creatinine Est GFR ( Amer) Glucose Calcium Total Bilirubin AST Alkaline Phosphatase Total Protein Albumin TSH 3.39 Free T4 1.13 Free T3 pg/mL 3.58 Urine Color YELLOW Urine Appearance CLEAR Urine pH 6.0 Ur Specific [place] 1.017 Urine Protein NEGATIVE Urine Glucose (UA) NEGATIVE Urine Ketones NEGATIVE Urine Blood NEGATIVE Urine Nitrite NEGATIVE Ur Leukocyte Esterase NEGATIVE Urine WBC (Auto) 0 Urine RBC (Auto) 0 09/28/18 06:27 WBC RBC Hgb Hct MCV MCH MCHC RDW Plt Count Seg Neutrophils % Sodium 136.4 L Potassium 4.4 Chloride 106 Carbon Dioxide 22 Anion Gap 8 BUN 12 Creatinine 0.94 Est GFR ( Amer) > 60 Glucose 130 H Calcium 8.3 L Total Bilirubin 0.3 AST 46 Alkaline Phosphatase 43 Total Protein 5.9 L Albumin 3.4 L TSH Free T4 Free T3 pg/mL Urine Color Urine Appearance Urine pH Ur Specific [place] Urine Protein Urine Glucose (UA) Urine Ketones Urine Blood Urine Nitrite Ur Leukocyte Esterase Urine WBC (Auto) Urine RBC (Auto) Impressions: Abdomen Ultrasound 09/26/18 19:56 IMPRESSION: Cholelithiasis without evidence of acute cholecystitis. Assessment & Plan - Diagnosis (1) Cholelithiasis Qualifiers: Cholelithiasis location: gallbladder Cholecystitis presence: without cholecystitis Biliary obstruction: without biliary obstruction Qualified Code(s): K80.20 - Calculus of gallbladder without cholecystitis without obstruction Is this a current diagnosis for this admission?: Yes (2) RUQ pain Is this a current diagnosis for this admission?: Yes - Plan Summary Plan Summary: A/ POD#1 after lap umang VSS, AF WBC 15, most likely reactive Constipation Toleratig PO well P/ Heplock IVF Stop Dilaudid Start Tramdol PO for pain Dulcolax suppository x 1 Repeat CBC @3:00 PM this afternoon; if it is downtrending, patient can be discharged to home early this evening
[2018-09-28] MEDS ORDERED: TRAMADOL HCL 50 MG TABLET PO PRN (11:25)
[2018-09-28] MEDS ORDERED: BISACODYL 10 MG SUPP.RECT PR PRN (11:26)
[2018-09-28 15:28] LABS: HEMATOCRIT 39.7 % (37.9-51.0); HEMOGLOBIN 13.2 g/dL (13.5-17.0); MEAN CORPUSCULAR HEMOGLOBIN 29.5 pg (27.0-33.4); MEAN CORPUSCULAR HGB CONC 33.1 g/dL (32.0-36.0); MEAN CORPUSCULAR VOLUME 89 fl (80-97); PLATELET COUNT 222 10^3/uL (150-450); RED BLOOD COUNT 4.47 10^6/uL (4.35-5.55); RED CELL DISTRIBUTION WIDTH 14.8 % (11.5-14.0); WHITE BLOOD COUNT 15.1 10^3/uL (4.0-10.5)
[2018-09-28] MEDS ORDERED: METFORMIN HCL 500 MG TABLET PO SCH (18:00)
--- NOTE | 2018-09-28 18:01 | RADIOLOGY REPORT (SQ) ---
EXAM DESCRIPTION: CHEST 2 VIEWS COMPLETED DATE/TIME: 09/28/2018 5:03 pm REASON FOR STUDY: postop lap umang, elevation WBC, r/o pneumonia COMPARISON: 06/09/2016 TECHNIQUE: Frontal and lateral radiographic views of the chest acquired. NUMBER OF VIEWS: Two view. LIMITATIONS: None. FINDINGS: LUNGS AND PLEURA: No pneumothorax. Minimal basilar subsegmental atelectasis. No consolid ation or pleural effusion. MEDIASTINUM AND HILAR STRUCTURES: Stable. HEART AND VASCULAR STRUCTURES: Stable. BONES: No acute findings. HARDWARE: None in the chest. OTHER: Free air noted below the right hemidiaphragm consistent with reported recent surgery. IMPRESSION: Minimal basilar subsegmental atelectasis. No consolidation or pleural effusion.Free air noted below the right hemidiaphragm consistent with reported recent surgery. TECHNICAL DOCUMENTATION: JOB ID: [id number] [employer]- All Rights Reserved Reading location - IP/workstation name: [email or web address]
--- NOTE | 2018-09-28 19:37 | Progress Note ---
Provider Note Provider Note: Called by nurse b/c of RUQ abdominal pain S/ No N/V; dinner tolerated, no flatus, pain ;localized in the RUQ O/ VSS, AF, HR 51 Abdomen= obese, soft, positive hyperactive bowel sounds, all incisions are C/D/I; no peritineal signs either on deep palpation or superficial tapping; tenderness at the LS surgery incisions Chest Xray= small amount free air R diaphragm A/P POD#1 after lapo Esthela WBC in AM and repeated at 3 PM is 15 K VSS PE benign so far, no evidence of peritonitis; patient moves well in/out of bed, with no c/o Pain localized in the RUQ only, without peritonitis, most likely incisional pain at the epigastric incision as well Plan to obtain CBC in AM NPO after MN IVF past MN
[2018-09-28] MEDS ORDERED: GLUCAGON,HUMAN RECOMB 1 MG INJ SUBCUT PRN (19:38)
[2018-09-28] MEDS ORDERED: DEXTROSE 40% GEL 15 GM TUBE PO PRN ×2 (19:38)
[2018-09-28] MEDS ORDERED: DEXTROSE 50%-WATER 25 GM/50 ML DISP.SYRIN IV PRN ×2 (19:38)
[2018-09-28] MEDS: HYDROCODONE/ACETAMINOPHEN 5-325 MG TABLET PO PRN (20:31)
[2018-09-28] MEDS ORDERED: NORMAL SALINE 1000 ML 1,000 ML IV PRN (23:50)
[2018-09-29] MEDS: HYDROCODONE/ACETAMINOPHEN 5-325 MG TABLET PO PRN ×2 (01:51→06:30)
[2018-09-29] MEDS: PIPERACILLIN SODIUM/TAZOBACTAM 3.375 GM in NORMAL SALINE 100 ML IV SCH ×2 (03:44→08:47)
[2018-09-29 05:28] LABS: ABSOLUTE BASOPHILS # (AUTO) 0.1 10^3/uL (0.0-0.2); ABSOLUTE EOSINOPHILS # (AUTO) 0.3 10^3/uL (0.0-0.6); ABSOLUTE LYMPHOCYTES (AUTO) 3.3 10^3/uL (0.5-4.7); ABSOLUTE MONOCYTES (AUTO) 0.8 10^3/uL (0.1-1.4); ABSOLUTE NEUT (AUTO) 6.5 10^3/uL (1.7-8.2); BASOPHILS % (AUTO) 0.9 % (0-2); EOSINOPHILS % (AUTO) 2.8 % (0-6); HEMATOCRIT 36.4 % (37.9-51.0); HEMOGLOBIN 12.3 g/dL (13.5-17.0); LYMPHOCYTES % (AUTO) 30.1 % (13-45); MEAN CORPUSCULAR HEMOGLOBIN 29.9 pg (27.0-33.4); MEAN CORPUSCULAR HGB CONC 33.8 g/dL (32.0-36.0); MEAN CORPUSCULAR VOLUME 88 fl (80-97); MONOCYTES % (AUTO) 6.9 % (3-13); PLATELET COUNT 196 10^3/uL (150-450); RED BLOOD COUNT 4.13 10^6/uL (4.35-5.55); RED CELL DISTRIBUTION WIDTH 14.7 % (11.5-14.0); SEGMENTED NEUTROPHILS % (AUTO) 59.3 % (42-78); TOTAL CELLS COUNTED % (AUTO) 100 %
[2018-09-29] MEDS ORDERED: LEVOTHYROXINE SODIUM 0.025 MG TABLET PO SCH (06:00)
[2018-09-29] MEDS ORDERED: LEVOTHYROXINE SODIUM 0.1 MG TABLET PO SCH (06:00)
--- NOTE | 2018-09-29 07:50 | PDOC DISCHARGE SUMMARY ---
General - Admit/Disc Date/PCP Admission Date/Primary Care Provider: 09/26/18 23:05 AMILCAR VERA Discharge Date: 09/29/18 - Additional Information Resuscitation Status: Full Code Discharge Diet: As Tolerated Discharge Activity: Activity As Tolerated, No Lifting Over 10 Pounds, No Lifting/Push/Pulling Home Medications: Levothyroxine Sodium [Synthroid] 125 mcg PO Q6AM 09/27/18 Metformin HCl [Glucophage XR 500 mg Tablet] 1,000 mg PO QPM 09/27/18 History of Present Illness History of Present Illness: SEAN YOUSIF is a 53 year old male who presented with abdominal pain right upper quadrant work-up in the emergency room confirmed acute cholecystitis Hospital Course Hospital Course: This is a a 53-year-old male who presented to the emergency room with acute right upper quadrant pain work-up in the emergency room confirmed acute cholecystitis he was admitted to the surgical service for IV antibiotics and subsequent laparoscopic cholecystectomy which he underwent during his hospitalization he tolerated the procedure well was monitored for 48 hours postop for IV antibiotics and for elevated white count the white count subsequently regressed and the patient was started on a diet which he tolerated well and now is ready for discharge home Physical Exam Vital Signs: Temp Pulse Resp BP Pulse Ox 98.2 F 51 L 18 121/56 L 98 09/28/18 15:42 09/29/18 07:00 09/28/18 15:42 09/28/18 15:42 09/28/18 15:42 Intake & Output 09/28/18 09/29/18 09/30/18 06:59 06:59 06:59 Intake Total 4550 1855 Output Total 1555 300 Balance 2995 1555 Weight 106.4 kg 107 kg General appearance: PRESENT: no acute distress Head exam: PRESENT: normocephalic Eye exam: PRESENT: EOMI Ear exam: PRESENT: normal external ear exam Mouth exam: PRESENT: moist Neck exam: PRESENT: full ROM Respiratory exam: PRESENT: clear to auscultation karen Cardiovascular exam: PRESENT: RRR Pulses: PRESENT: normal radial pulses, normal femoral pulses Vascular exam: PRESENT: normal capillary refill GI/Abdominal exam: PRESENT: soft Rectal exam: PRESENT: deferred Extremities exam: PRESENT: full ROM Musculoskeletal exam: PRESENT: full ROM Neurological exam: PRESENT: alert, awake, oriented to person, oriented to place Psychiatric exam: PRESENT: appropriate affect Skin exam: PRESENT: dry Results Laboratory Results: 09/29/18 04:28 09/28/18 06:27 09/28/18 09/29/18 15:17 04:28 WBC 15.1 H 11.0 H RBC 4.47 4.13 L Hgb 13.2 L 12.3 L Hct 39.7 36.4 L MCV 89 88 MCH 29.5 29.9 MCHC 33.1 33.8 RDW 14.8 H 14.7 H Plt Count 222 196 Seg Neutrophils % 59.3 Impressions: Abdomen Ultrasound 09/26/18 19:56 IMPRESSION: Cholelithiasis without evidence of acute cholecystitis. Chest X-Ray 09/28/18 00:00 IMPRESSION: Minimal basilar subsegmental atelectasis. No consolidation or pleural effusion.Free air noted below the right hemidiaphragm consistent with reported recent surgery. Qualifiers - * PATIENT BEING DISCHARGED WITH ANY OF THE FOLLOWING DIAGNOSIS: No VTE patient discharged on overlapping Therapy?: No Reason(s) for not prescribing Overlap Therapy:: Not indicated Reason(s) for not prescribing Anti-thrombolytic therapy:: Not indicated Reason(s) for not prescribing Anti-coagulation therapy:: Not indicated Reason(s) for not prescribing Statins therapy:: Not indicated Reason(s) for not prescribing Aspirin therapy:: Not indicated Reason(s) for not prescribing Statin therapy:: Not indicated Reason(s) for not prescribing ACEI/ARBS:: Not indicated Acute Heart Failure - Is this a Heart Failure Patient?: No Plan Time Spent: Less than 30 Minutes - Patient will follow-up in surgery clinic in 7 to 10 days after discharge
[2018-09-29] MEDS: ENOXAPARIN SODIUM INJ 40 MG/0.4 ML DISP.SYRIN SUBCUT SCH (09:29)
[2018-09-29 09:47] VITALS: BP 111/70
== END 2018-09-29 10:18 | disposition home or self-care (01) ==
LOC: ER 19:14 → EH 23:05 → 3S 09-27 03:58
PROVIDERS: ATTEND Surgery
PROC: 0FT44ZZ Resection of Gallbladder, Percutaneous Endoscopic Approach (ICD-10-PCS; principal; 2018-09-27 12:15)
DX: K80.10 Calculus of gallbladder with chronic cholecystitis without obstruction (principal); R10.11 Right upper quadrant pain; E03.9 Hypothyroidism, unspecified; E11.9 Type 2 diabetes mellitus without complications; R00.1 Bradycardia, unspecified; E66.9 Obesity, unspecified; K59.00 Constipation, unspecified; Z85.038 Personal history of other malignant neoplasm of large intestine; Z90.49 Acquired absence of other specified parts of digestive tract; Z79.899 Other long term (current) drug therapy; Z87.19 Personal history of other diseases of the digestive system
CPT/HCPCS: 99285; 96361; 96375; 96365; 36415 ×3; 84439; 82962 ×2; 83690; 84443; 85025 ×3; 82272; 80053 ×2; 81001 ×2; 84481; 88304 ×2; 71046; 76705; 93005; 93010; 00790; 47562; J2250; J3490 ×5; J1100; S0119; J3010; J1885 ×3; J2710; J1650 ×2; J1170 ×3; J2405 ×2; J7050 ×3; J7030 ×3; J2704; S0028 ×2; J2543 ×3; 790; G0378